=== PATIENT | male | born 1995 | race African-American/Black ===

== ENCOUNTER 2017-04-20 10:47 | Emergency (ER) | payer SELFPAY ==
--- NOTE | 2017-04-20 17:33 | Emergency Department Report ---
Minor Respiratory - HPI Chief Complaint: Upper Respiratory Infection Stated Complaint: COUGH Time Seen by Provider: 04/20/17 16:11 Duration: 5 Days Severity: mild Minor Respiratory: Yes Able to Tolerate Fluids, Yes Cough, Yes [facility] No Rhinorrhea, No Sore Throat, No Ear Pain, No Hemoptysis , No Chest Pain, No Shortness of Breath, No Fever Other History: This is a 21 y.o. male presents with a cough for 4 days. Patient states he was incarcerated 2 weeks ago and received a TB skin test. He was released from [facility] and instructed to have it read in 48-72 hours. He got out and didn't get it read because he had to return to work in order to keep is job. He looked at it and it was a small bump and redness around the bump. He forgot about it until he started coughing 4 days ago. Denies chest pain, fever, SOB, wheezing, night sweats, and N/V. He is having some congestion but assume it 's from cold. ED Review of Systems ROS: Stated complaint: COUGH Other details as noted in HPI Constitutional: denies: chills, fever Respiratory: cough. denies: orthopnea, shortness of breath, SOB with exertion, SOB at rest, stridor, wheezing Cardiovascular: denies: chest pain, palpitations Gastrointestinal: denies: abdominal pain, nausea, diarrhea Neurological: denies: headache, weakness, paresthesias ED Past Medical Hx - Past Medical History Hx Asthma: Yes - Social History Smoking Status: Never Smoker Substance Use Type: None - Medications Home Medications: Home Medications Medication Instructions Recorded Confirmed Last Taken Type Cephalexin [Keflex] 250 mg PO Q6HR #40 capsule 11/08/14 Unknown Rx Ciprofloxacin HCl [Ciprofloxacin 500 mg PO Q12HR #20 tab 11/08/14 Unknown Rx TAB] Ibuprofen [Motrin 800 MG tab] 800 mg PO Q8HR PRN #30 tablet 11/08/14 Unknown Rx Acetaminophen/Codeine [Tylenol #3] 1 tab PO Q6H PRN #15 tab 01/29/15 Unknown Rx Cyclobenzaprine HCl [Flexeril 5 MG 5 mg PO TID PRN #30 tab 10/31/15 Unknown Rx TAB] Ibuprofen [Motrin] 800 mg PO Q8HR #30 tablet 10/31/15 Unknown Rx Neomycn/Bacitrc/Polymyx/Pramox 30 gm TP BID #1 oint...g. 10/31/15 Unknown Rx [Triple Antibiotic Plus Ointmnt] Tobramycin 0.3% [Tobrex] 1 drop OU Q8HR #1 bottle 10/31/15 Unknown Rx Benzonatate 200 mg PO TID PRN #20 capsule 04/20/17 Unknown Rx Minor Respiratory Exam - Exam General: Vital signs noted. No distress. Alert and acting appropriately. HEENT: Yes Moist Mucous Membranes, Yes Rhinorrhea (pale, swollen turbinates bilaterally, clear), No Pharyngeal Erythema, No Pharyngeal Exudates, No Conjuctival Injection, No Frontal Tenderness, No Maxillary Tenderness Ear: Neither TM Bulge, Neither TM Erythema, Neither EAC Pain, Neither EAC Discharge Neck: Yes Supple, No Adenopathy Lungs: Yes Good Air Exchange, Yes Cough, No Wheezes, No Ronchi, No Stridor, No Labored Respirations, No Retractions, No Use of Accessory Muscles, No Other Abnormal Lung Sounds Heart: Yes Regular, No Murmur Abdomen: Yes Normal Bowel Sounds, No Tenderness, No Peritoneal Signs Skin: No Rash, No Edema Neurologic: Alert and oriented, no deficits. Musculoskeletal: Unremarkable. ED Course Vital Signs 04/20/17 11:50 Temperature 98.9 F Pulse Rate 65 Respiratory 16 Rate Blood Pressure 123/60 O2 Sat by Pulse 98 Oximetry ED Medical Decision Making - Radiology Data Radiology results: image reviewed CXR IMPRESSION: No acute cardiopulmonary process seen. No change. - Medical Decision Making This is a 21 y.o. male presents with cough and congestion for 4 days. He was incarcerated 2 weeks ago and given TB skin test. He was released prior to 48-72 hours for reading. Instructed to have it read in 48-72 hours, which he didn't do because he had to work. He saw a bump with redness to left forearm and forgot to f/u. Normal CXR. Nasopharyngitis Discharged home with supportive care. Instructed to f/u with PCP if symptoms are worse. Critical care attestation.: If time is entered above; I have spent that time in minutes in the direct care of this critically ill patient, excluding procedure time. ED Disposition Clinical Impression: URI (upper respiratory infection) Qualifiers: URI type: acute nasopharyngitis (common cold) Qualified Code(s): J00 - Acute nasopharyngitis [common cold] Disposition: - TO HOME OR SELFCARE Is pt being admited?: No Does the pt Need Aspirin: No Condition: Stable Instructions: Upper Respiratory Infection (ED), Cold Symptoms (ED) Additional Instructions: Increase fluid intake. Wash hands frequently. Take ibuprofen or tylenol if fever or chills. Use nasal saline for congestion. Prescriptions: Benzonatate 200 mg PO TID PRN #20 capsule PRN Reason: Cough Referrals: ANURADHA WILDER MD [Staff Physician] - 3-5 Days [facility] [Outside] - 3-5 Days [facility] [Outside] - 3-5 Days [facility] [Outside] - 3-5 Days Forms: Work/School Release Form(ED) Time of Disposition: 18:40 Print Language: SPANISH
[2017-04-20 18:23] VITALS: BP 125/70
--- NOTE | 2017-04-20 18:37 | XRay Report ---
FINAL REPORT EXAM: XR CHEST ROUTINE 2V HISTORY: TB exposure, cough TECHNIQUE: PA and lateral views of the chest PRIORS: CXR 10/29/2016 FINDINGS: Lines, tubes, and devices: N/A Lungs and pleura: Trachea is normal in position. Lungs are clear of infiltrate, pleural effusion, vascular congestion, or pneumothorax. No change. Cardiomediastinal silhouette: Cardiac and mediastinal silhouettes are unremarkable. Other: Bony structures are intact. IMPRESSION: No acute cardiopulmonary process seen. No change.
== END 2017-04-20 18:57 | disposition home or self-care (01) ==
LOC: ED 10:47
DX: J00 Acute nasopharyngitis [common cold] (principal); J45.909 Unspecified asthma, uncomplicated
CPT/HCPCS: 71046; 99283

== ENCOUNTER 2021-02-12 11:48 | Emergency (ER) | payer OTHER ==
[2021-02-12 12:31] VITALS: BP 122/72
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
== END 2021-02-12 12:28 | disposition home or self-care (01) ==
LOC: ED 11:48
DX: M54.9 Dorsalgia, unspecified (principal); V49.49XA Driver injured in collision with other motor vehicles in traffic accident, initial encounter; Y93.89 Activity, other specified; Y92.89 Other specified places as the place of occurrence of the external cause; Y99.8 Other external cause status
CPT/HCPCS: 99282